=== PATIENT | male | born 1965 | race Caucasian/White ===

== ENCOUNTER 2018-10-20 08:20 | Emergency (ER) | payer BC ==
[~2018-10-20] VITALS: Ht 182.9 cm; Wt 108.9 kg
[2018-10-20 08:30] VITALS: BP_SYST 135
--- NOTE | 2018-10-20 08:38 | NUR ---
Patient to ER bed 7 to gown for evaluation. Side rails up. Report given to RL SINGH.
--- NOTE | 2018-10-20 08:42 | NUR ---
Patient arrived via POV, AAOx4, ambulatory with steady gait. Patient c/c of cough x 1 month. Patient states productive cough with green sputum. Patient denies fever, ear, eye, nose drainage at this time. Patient states nose and eye drainage last week, resolved. No use of OTC medications, '[place] remedies.' Patient states no pain, just annoying cough that does not seem to resolve. Will continue to follow up and monitor.
--- NOTE | 2018-10-20 08:45 | NUR ---
ER at bedside examining patient.
--- NOTE | 2018-10-20 08:46 | NUR ---
XR at bedside for exam.
[2018-10-20] MEDS ORDERED: ALBUTEROL SULFATE 0.083% 2.5 MG/3 ML VIAL.NEB IH ONE (09:15)
[2018-10-20] MEDS ORDERED: IPRATROPIUM BROM 0.5 MG/2.5 ML VIAL.NEB (ATROVENT) IH ONE (09:15)
[2018-10-20] MEDS ORDERED: PREDNISONE 20 MG TABLET PO ONE (09:15)
[2018-10-20 09:40] VITALS: BP_SYST 132
--- NOTE | 2018-10-20 09:40 | NUR ---
Patient given written and verbal discharge instructions and verbalizes understanding. ER MD discussed with patient the results and treatment provided. Patient in stable condition. ID arm band removed. Rx of zithromax and Hydrochloride/Dextromorphan Cough syrup given. Patient educated on pain management and to follow up with PMD. Pain Scale 0/10. Opportunity for questions provided and answered. Medication side effect fact sheet provided.
== END 2018-10-20 09:40 | disposition home or self-care (01) ==
LOC: SED 08:20
DX: J20.9 Acute bronchitis, unspecified (principal); R05 Cough; I10 Essential (primary) hypertension
CPT/HCPCS: 71045; 94640; 99283; J7512; J7613